=== PATIENT | male | born 1945 | race Caucasian/White ===

== ENCOUNTER 2017-04-29 19:00 | Emergency (ER) | payer MEDICARE ==
--- NOTE | 2017-04-29 20:37 | ED NURSING NOTES ---
Clinical Report - Nurses [facility] [address] [place] [address] 04/29/2017 19:02 Patient: CONNIE LINDSAY TRIAGE Triage time 19:13. Acuity: LEVEL 3. Chief Complaint: NAUSEA, VOMITING and DIARRHEA. --19:16 Sheriff Fairchild R.N. 19:11 04/29/17. BP: 133/71. HR: 91. RR: 22. O2 saturation: 94%. Temp: 98.4 F. Pain level now: 12/07. --19:16 Sheriff Fairchild R.N. Weight: 97 kg stated. Height/Length: 73 inches Per Patient. BMI: 28.2. --19:12 Sheriff Fairchild R.N. Medications Hydrochlorothiazide Oral (Tablet 12.5 mg) 1 tablet, daily. --19:15 Sheriff Fairchild R.N. Allergies No Known Drug Allergy. --19:15 Sheriff Fairchild R.N. History Historian: patient. Onset. (2 hours ago). SURGERY HX: Appendectomy. Tonsillectomy. ( Prostrate). SOCIAL HX: Never smoker. Occasional alcohol use. No drug use. FALL RISK ASSESSMENT: Fall risk assessment completed. No fall risk identified. NUTRITIONAL RISK ASSESSMENT: The nutritional risk assessment revealed no deficiencies. FUNCTIONAL ASSESSMENT: Functional assessment: no impairments noted. LEARNING NEEDS ASSESSMENT: The learning needs assessment revealed no barriers. SKIN INTEGRITY ASSESSMENT: Skin integrity risk assessment completed. No skin integrity risk identified. --19:16 Sheriff Fairchild R.N. PROBLEMS: Hypertension. --19:15 Sheriff Fairchild R.N. Interventions ID band on patient. --19:16 Sheriff Fairchild R.N. PHYSICAL ASSESSMENT To room via wheelchair. GENERAL / NEURO / PSYCH: Alert. Oriented X 4. Appears in no acute distress. HEENT: Mucous membranes are pink. RESPIRATORY: Respirations not labored. CVS: Capillary refill less than 2 seconds. SKIN: Skin is warm and dry. --19:17 Sheriff Fairchild R.N. NURSING PROGRESS NOTES Head of bed elevated. Two patient identifiers checked. Call light placed in reach. Side rails up x 2. Bed placed in lowest position. Brakes of bed on. --19:17 Sheriff Fairchild R.N. 19:32 04/29/2017 Site #1 started via IV in the left antecubital space with an 20g angiocath; one attempt. Blood drawn: rainbow set. Saline lock flushed with 10 mL saline. --19:57 Zheng Nguyen R.N. 19:32 04/29/2017 Started IV Fluids IV NS (Saline); bolus of 1000 mL over 1 hour(s) via site #1 via IV pump. Allergies verified and confirmed 5 rights. IV patency established. IV site checked: no pain, redness, or swelling. IV flushed thoroughly pre- and post-medication administration. --19:57 Zheng Nguyen R.N. 19:58 04/29/2017 Toradol IVP 30 mg given over 1 minute(s) via site #1. Allergies verified and confirmed 5 rights. IV patency established. IV site checked: no pain, redness, or swelling. IV flushed thoroughly pre- and post-medication administration. IVP given by RN. --19:59 Sheriff Fairchild R.N. 19:59 04/29/2017 Zofran (Ondansetron HCl) IVP 4 mg given over 1 minute(s) via site #1. Allergies verified and confirmed 5 rights. IV patency established. IV site checked: no pain, redness, or swelling. IV flushed thoroughly pre- and post-medication administration. IVP given by RN. --19:59 Sheriff Fairchild R.N. 20:55 04/29/2017 Site #1 removed upon discharge. Catheter intact. Bandaid applied. --21:05 Sheriff Fairchild R.N. DISPOSITION / DISCHARGE Condition at departure: stable. No learning barriers present. Discharge instructions provided and reviewed with the patient. Reviewed medication(s) side effects, precautions, dosing and course information. Prescription(s) given to the parent. Patient verbalized understanding. Written instructions provided in [place]. The patient was discharged by the nurse practitioner. He was discharged home and accompanied by spouse. He left the Emergency Department ambulatory and via private vehicle. Spouse driving. --21:04 Sheriff Fairchild R.N. 21:03 04/29/17. BP: 94/48. HR: 84. RR: 18. O2 saturation: 97%. Temp: 98 F. Pain level now: 0/10. --21:04 Sheriff Fairchild R.N. Locked/Released at 04/29/2017 21:05 by Sheriff Fairchild R.N.
--- NOTE | 2017-04-29 20:37 | ED CLINICAL REPORT ---
Clinical Report - Physicians/Mid Levels [facility] [address] [address] 04/29/2017 19:02 Patient: CONNIE LINDSAY Time Seen: 19:25; initial patient contact, initial documentation, patient care assumed. Arrived- By private vehicle. Historian- patient. HISTORY OF PRESENT ILLNESS Chief Complaint: VOMITING and DIARRHEA. This started last night and is still present. It was abrupt in onset. No recent travel. He has had nausea, vomiting. The vomiting has occurred twice and mild, crampy, intermittent abdominal pain. He has had loose stools. This has occurred only once. No black stools, bloody stools, constipation, flank pain or known contact with a sick individual. No change in routine. Has not recently been camping or on antibiotics. Possible bad food exposure at home (shrimp). The illness is described as moderate. (was playing golf earlier when it started back up, sat in hot car afterwards, and got hot playing golf). Similar symptoms previously: None. Recent medical care: Not recently seen/assessed. REVIEW OF SYSTEMS No fever, muscle aches, difficulty with urination, dark urine or dizziness. No chest pain or difficulty breathing. All systems otherwise negative, except as recorded above. PAST HISTORY See nurses notes. PROBLEMS: Hypertension. --19:15 Sheriff Devorah, Makenna. SOCIAL HISTORY Never smoker. Occasional alcohol use. No drug use. No recent travel. Is a local resident. FAMILY HISTORY Negative. ADDITIONAL NOTES The nursing notes have been reviewed with agreement regarding the chief complaint, HPI, ROS, PMH and patient medications and allergies. PHYSICAL EXAM Vital Signs: 04/29/2017 19:11 BP: 133/71. HR: 91. RR: 22. O2 saturation: 94%. Temp: 98.4 F. Pain level now: 2/10. Have been reviewed as normal and appear to be correct. Appearance: Alert. Oriented X3. No acute distress. Eyes: Pupils equal, round and reactive to light. Eyes normal inspection. Neck: Normal inspection. Neck supple. CVS: Normal heart rate and rhythm. Heart sounds normal. Pulses normal. Respiratory: No respiratory distress. Breath sounds normal. Abdomen: Soft and nontender. Bowel sounds normal. No organomegaly. No mass. Back: Normal inspection. Skin: Skin warm and dry. Normal skin color. No rash. Normal skin turgor. Extremities: Extremities exhibit normal ROM. No lower extremity edema. Neuro: Oriented X 3. No motor deficit. No sensory deficit. LABS, X-RAYS, AND EKG Laboratory Tests: CBC w Diff: (FELIPA: 04/29/2017 19:35) ( [facility] 04/29/[place] 20:00) Final results Test Result Flag Units (Reference) WHITE BLOOD COUNT 15.6 H K/uL (4.5-11.5) RED BLOOD COUNT 4.69 M/uL (4.50-5.90) HEMOGLOBIN 14.7 gm/dL (13.5-17.5) HEMATOCRIT 43.5 % (41.0-53.0) MEAN CELL VOLUME 93 fL (80-100) MEAN CORPUSCULAR HGB 31 pg (26-34) MEAN CORPUSCULAR HGB CONC 34 g/dL (31-37) RED CELL DISTRIBUTION WIDTH 13.7 % (11.6-14.8) PLATELET COUNT 238 K/uL (150-400) NEUTROPHIL % 85.5 H % (50-75) LYMPH % 9.3 L % (25-40) MONO % 4.6 % (3-14) EOSINOPHIL % 0.2 % (0-4) BASOPHIL % 0.4 % (0-2) CMP: (FELIPA: 04/29/2017 19:35) ( [facility] 04/29/2017 20:12) Final results Test Result Flag Units (Reference) GLUCOSE 109 mg/dL (70-110) BUN 19 H mg/dL (7-18) CREATININE 1.4 H mg/dL (0.6-1.3) Estimated GFR 53.41 mL/min Estimated GFR- >60 mL/min Note: Persistent reduction over 3 months in eGFR<60 mL/min/1.73 m2 defines CKD. Patients with eGFR values>=60 mL/min/1.73 m2 may also have CKD if evidence ofpersistent proteinuria. Additional information may be foundat www.kidney.org. SODIUM 136 mmol/L (136-145) POTASSIUM 3.8 mmol/L (3.5-5.1) SLIGHT HEMOLYSIS PRESENT CHLORIDE 101 mmol/L (98-107) CARBON DIOXIDE 25 mmol/L (21-32) CALCIUM 8.8 mg/dL (8.5-10.1) TOTAL PROTEIN 7.5 g/dL (6.4-8.2) ALBUMIN 3.8 g/dL (3.3-5.0) BILIRUBIN, TOTAL 0.5 mg/dL (0.0-1.0) ALKALINE PHOSPHATASE 89 U/L (46-116) AST (SGOT) 23 U/L (15-37) ALT (SGPT) 30 U/L (12-78) LIPASE 98 U/L (73-393) AMYLASE 65 U/L (25-115) . PROGRESS AND PROCEDURES Course of Care: tx plan discussed, pt has not voided, agreed to dc without urine sample. Patient counseled in person regarding the patient's stable condition, test results and diagnosis. Differential Diagnosis: I considered gastritis, peptic ulcer disease, ischemia, gastroesophageal reflux disease, gastroparesis, Crohn's disease, ulcerative colitis, small bowel obstruction, colonic obstruction, colon cancer, gastroenteritis, cholecystitis, pancreatitis, viral syndrome, enterocolitis, urinary tract infection, hepatitis and hyperthyroidism as a possible cause of vomiting in this patient. This is a partial list of diagnoses considered. Above considerations are based on history, physical exam, reassessment and laboratory data. Differential diagnosis was discussed with patient. Disposition: Discharged home in good and improved condition (20:37). Condition: good and stable. CLINICAL IMPRESSION Acute noninfectious gastroenteritis. INSTRUCTIONS Take clear liquids only (frequent sips) for the next 24 hours until better. May continue medications with sips only. Advance diet as tolerated. Avoid. Warnings: GENERAL WARNINGS: Return or contact your physician immediately if your condition worsens or changes unexpectedly, if not improving as expected, or if other problems arise. SPECIFICALLY, return if you develop pain in the abdomen or pelvis, fever, the inability to keep fluids down, blood in vomitus, blood in diarrhea, fainting or lightheadedness. Prescription Medications: Zofran 4 mg: Take 1 orally every six hours as needed for nausea/vomiting. Dispense ten (10). No refills. Substitution is permissible. Follow-up: Follow up with your doctor in about two days even if well. Call for an appointment. Summary of care provided to patient. Understanding of the discharge instructions verbalized by patient. (Electronically signed by Chely Ruelas A.R.N.P. 04/29/2017 22:49)
--- NOTE | 2017-04-29 20:37 | ED NURSING NOTES ---
Clinical Report - Nurses [facility] [address] [place] [address] 04/29/2017 19:02 Patient: CONNIE LINDSAY TRIAGE Triage time 19:13. Acuity: LEVEL 3. Chief Complaint: NAUSEA, VOMITING and DIARRHEA. --19:16 Sheriff Fairchild R.N. 19:11 04/29/17. BP: 133/71. HR: 91. RR: 22. O2 saturation: 94%. Temp: 98.4 F. Pain level now: 12/07. --19:16 Sheriff Fairchild R.N. Weight: 97 kg stated. Height/Length: 73 inches Per Patient. BMI: 28.2. --19:12 Sheriff Fairchild R.N. Medications Hydrochlorothiazide Oral (Tablet 12.5 mg) 1 tablet, daily. --19:15 Sheriff Fairchild R.N. Allergies No Known Drug Allergy. --19:15 Sheriff Fairchild R.N. History Historian: patient. Onset. (2 hours ago). SURGERY HX: Appendectomy. Tonsillectomy. ( Prostrate). SOCIAL HX: Never smoker. Occasional alcohol use. No drug use. FALL RISK ASSESSMENT: Fall risk assessment completed. No fall risk identified. NUTRITIONAL RISK ASSESSMENT: The nutritional risk assessment revealed no deficiencies. FUNCTIONAL ASSESSMENT: Functional assessment: no impairments noted. LEARNING NEEDS ASSESSMENT: The learning needs assessment revealed no barriers. SKIN INTEGRITY ASSESSMENT: Skin integrity risk assessment completed. No skin integrity risk identified. --19:16 Sheriff Fairchild R.N. PROBLEMS: Hypertension. --19:15 Sheriff Fairchild R.N. Interventions ID band on patient. --19:16 Sheriff Fairchild R.N. PHYSICAL ASSESSMENT To room via wheelchair. GENERAL / NEURO / PSYCH: Alert. Oriented X 4. Appears in no acute distress. HEENT: Mucous membranes are pink. RESPIRATORY: Respirations not labored. CVS: Capillary refill less than 2 seconds. SKIN: Skin is warm and dry. --19:17 Sheriff Fairchild R.N. NURSING PROGRESS NOTES Head of bed elevated. Two patient identifiers checked. Call light placed in reach. Side rails up x 2. Bed placed in lowest position. Brakes of bed on. --19:17 Sheriff Fairchild R.N. 19:32 04/29/2017 Site #1 started via IV in the left antecubital space with an 20g angiocath; one attempt. Blood drawn: rainbow set. Saline lock flushed with 10 mL saline. --19:57 Zheng Nguyen R.N. 19:32 04/29/2017 Started IV Fluids IV NS (Saline); bolus of 1000 mL over 1 hour(s) via site #1 via IV pump. Allergies verified and confirmed 5 rights. IV patency established. IV site checked: no pain, redness, or swelling. IV flushed thoroughly pre- and post-medication administration. --19:57 Zheng Nguyen R.N. 19:58 04/29/2017 Toradol IVP 30 mg given over 1 minute(s) via site #1. Allergies verified and confirmed 5 rights. IV patency established. IV site checked: no pain, redness, or swelling. IV flushed thoroughly pre- and post-medication administration. IVP given by RN. --19:59 Sheriff Fairchild R.N. 19:59 04/29/2017 Zofran (Ondansetron HCl) IVP 4 mg given over 1 minute(s) via site #1. Allergies verified and confirmed 5 rights. IV patency established. IV site checked: no pain, redness, or swelling. IV flushed thoroughly pre- and post-medication administration. IVP given by RN. --19:59 Sheriff Fairchild R.N. 20:55 04/29/2017 Site #1 removed upon discharge. Catheter intact. Bandaid applied. --21:05 Sheriff Fairchild R.N. DISPOSITION / DISCHARGE Condition at departure: stable. No learning barriers present. Discharge instructions provided and reviewed with the patient. Reviewed medication(s) side effects, precautions, dosing and course information. Prescription(s) given to the parent. Patient verbalized understanding. Written instructions provided in Burmese. The patient was discharged by the nurse practitioner. He was discharged home and accompanied by spouse. He left the Emergency Department ambulatory and via private vehicle. Spouse driving. --21:04 Sheriff Fairchild R.N. 21:03 04/29/17. BP: 94/48. HR: 84. RR: 18. O2 saturation: 97%. Temp: 98 F. Pain level now: 0/10. --21:04 Sheriff Fairchild R.N. Locked/Released at 04/29/2017 21:05 by Sheriff Fairchild R.N.
--- NOTE | 2017-04-29 20:37 | ED ORDER SUMMARY ---
..... Patient: CONNIE LINDSAY OrderSheet [facility] VisitID: [id number] [address] [place] [address] 71y, M Registration Date/Time: 04/29/2017 ORDER SHEET Weight: 97.0 kg (stated) Allergies: No Known Drug Allergy GENERAL ORDERS: CBC w Diff Urgent (19:46 04/29/2017 HBivens A.R.N.P.) (Ack 19:48 RKaruga) (19:56 CHernandez R.N.) CMP Urgent (19:46 04/29/2017 HBivens A.R.N.P.) (Ack 19:48 RKaruga) (19:56 CHernandez R.N.) UA-Culture if indicated Urgent (19:46 04/29/2017 HBivens A.R.N.P.) (Ack 19:48 RKaruga) Amylase Urgent (19:46 04/29/2017 HBivens A.R.N.P.) (Ack 19:48 RKaruga) (19:56 CHernandez R.N.) Lipase Urgent (19:46 04/29/2017 HBivens A.R.N.P.) (Ack 19:48 RKaruga) (19:56 CHernandez R.N.) MEDICATION ORDERS: IV FLUIDS: IV NS : initial bolus 1000 mL (1000 mL/hr), then none - for X1 (NOW) (19:46 04/29/2017 HBivens A.R.N.P.) (19:57 CHernandez R.N.) Toradol IV 30 mg (NOW) (19:46 04/29/2017 HBivens A.R.N.P.) (19:59 SSambou R.N.) Zofran IV 4 mg (NOW) (19:46 04/29/2017 HBivens A.R.N.P.) (19:59 SSambou R.N.) IV Saline Lock (19:46 04/29/2017 HBivens A.R.N.P.) (19:57 CHernandez R.N.) ORDER SHEET NOTES: [Electronically signed by Sheriff Melody Fairchild (21:05 04/29/2017)] [Electronically signed by Chely Ruelas (22:48 04/29/2017)] [Electronically locked/signed by Sheriff Melody Fairchild (21:05 04/29/2017)]
--- NOTE | 2017-04-29 20:37 | ED ORDER SUMMARY ---
..... Patient: CONNIE LINDSAY OrderSheet [facility] VisitID: [id number] [address] [place] [address] 71y, M Registration Date/Time: 04/29/2017 ORDER SHEET Weight: 97.0 kg (stated) Allergies: No Known Drug Allergy GENERAL ORDERS: CBC w Diff Urgent (19:46 04/29/2017 HBivens A.R.N.P.) (Ack 19:48 RKaruga) (19:56 CHernandez R.N.) CMP Urgent (19:46 04/29/2017 HBivens A.R.N.P.) (Ack 19:48 RKaruga) (19:56 CHernandez R.N.) UA-Culture if indicated Urgent (19:46 04/29/2017 HBivens A.R.N.P.) (Ack 19:48 RKaruga) Amylase Urgent (19:46 04/29/2017 HBivens A.R.N.P.) (Ack 19:48 RKaruga) (19:56 CHernandez R.N.) Lipase Urgent (19:46 04/29/2017 HBivens A.R.N.P.) (Ack 19:48 RKaruga) (19:56 CHernandez R.N.) MEDICATION ORDERS: IV FLUIDS: IV NS : initial bolus 1000 mL (1000 mL/hr), then none - for X1 (NOW) (19:46 04/29/2017 HBivens A.R.N.P.) (19:57 CHernandez R.N.) Toradol IV 30 mg (NOW) (19:46 04/29/2017 HBivens A.R.N.P.) (19:59 SSambou R.N.) Zofran IV 4 mg (NOW) (19:46 04/29/2017 HBivens A.R.N.P.) (19:59 SSambou R.N.) IV Saline Lock (19:46 04/29/2017 HBivens A.R.N.P.) (19:57 CHernandez R.N.) ORDER SHEET NOTES: [Electronically signed by Sheriff Melody Fairchild (21:05 04/29/2017)] [Electronically signed by Chely Ruelas (22:48 04/29/2017)] [Electronically locked/signed by Sheriff Melody Fairchild (21:05 04/29/2017)]
--- NOTE | 2017-04-29 22:50 | ED MED RECONCILIATION SUMMARY ---
Patient: CONNIE LINDSAY Medication Reconciliation Report [facility] VisitID: [id number] [address] [place] [address] 71y, M Registration Date/Time: 04/29/2017 Weight: 97.0 kg Height/Length: 73 in. BMI: 28.2 ALLERGIES: No Known Drug Allergy The patient's Home Medications are listed below: THE FOLLOWING MEDICATIONS NEED TO BE RECONCILED: Hydrochlorothiazide Oral (12.5 mg) 1 tablet, daily The source(s) of the original Home Medication information: Not obtained. The following Medications were given to the patient in the Emergency Department: IV NS IV Fluids bolus 1000 mL over 1 hour(s), administered: 04/29/2017 7:32:00 PM Toradol [IVP] IVP 30 mg, administered: 04/29/2017 7:58:00 PM Zofran [IVP] IVP 4 mg, administered: 04/29/2017 7:59:00 PM The following Medications were prescribed to the patient: Zofran 4 mg: Take 1 orally every six hours as needed for nausea/vomiting. Dispense ten (10). No refills. Substitution is permissible. -- Chely Ruelas A.R.N.P.
--- NOTE | 2017-04-29 22:50 | ED MAR SUMMARY ---
..... Medication Administration Record [facility] [address] [place] [address] Patient: CONNIE LINDSAY Visit ID: [id number] 71y, M Weight: 97.0 kg Height/Length: 73 in BMI: 28.2 ALLERGIES: No Known Drug Allergy Start 19:32 04/29/2017 Zheng Nguyen R.N. Medication Administered: IV NS (SALINE), Dose: IV Fluids, Bolus: 1000 mL over 1 hour(s), Site: #1 left AC. Medication Ordered: IV NS : initial bolus 1000 mL (1000 mL/hr), then none - for X1 (NOW). Given 19:58 04/29/2017 Sheriff Fairchild R.N. Medication Administered: TORADOL [IVP], Dose: 30 mg IVP over 1 minute(s), Site: #1 left AC. Medication Ordered: Toradol IV 30 mg (NOW). Given 19:59 04/29/2017 Sheriff Fairchild R.N. Medication Administered: ZOFRAN [IVP] (ONDANSETRON HCL), Dose: 4 mg IVP over 1 minute(s), Site: #1 left AC. Medication Ordered: Zofran IV 4 mg (NOW).
--- NOTE | 2017-04-29 22:50 | ED MED RECONCILIATION SUMMARY ---
Patient: CONNIE LINDSAY Medication Reconciliation Report [facility] VisitID: [id number] [address] [place] [address] 71y, M Registration Date/Time: 04/29/2017 Weight: 97.0 kg Height/Length: 73 in. BMI: 28.2 ALLERGIES: No Known Drug Allergy The patient's Home Medications are listed below: THE FOLLOWING MEDICATIONS NEED TO BE RECONCILED: Hydrochlorothiazide Oral (12.5 mg) 1 tablet, daily The source(s) of the original Home Medication information: Not obtained. The following Medications were given to the patient in the Emergency Department: IV NS IV Fluids bolus 1000 mL over 1 hour(s), administered: 04/29/2017 7:32:00 PM Toradol [IVP] IVP 30 mg, administered: 04/29/2017 7:58:00 PM Zofran [IVP] IVP 4 mg, administered: 04/29/2017 7:59:00 PM The following Medications were prescribed to the patient: Zofran 4 mg: Take 1 orally every six hours as needed for nausea/vomiting. Dispense ten (10). No refills. Substitution is permissible. -- Chely Ruelas A.R.N.P.
--- NOTE | 2017-04-29 22:50 | ED DISCHARGE INSTRUCTIONS ---
Patient: CONNIE LINDSAY General Instructions [facility] VisitID: [id number] [address] [place] [address] 71y, M Registration Date/Time: 04/29/2017 Acute noninfectious gastroenteritis. INSTRUCTIONS Take clear liquids only (frequent sips) for the next 24 hours until better. May continue medications with sips only. Advance diet as tolerated. Avoid. Warnings: GENERAL WARNINGS: Return or contact your physician immediately if your condition worsens or changes unexpectedly, if not improving as expected, or if other problems arise. SPECIFICALLY, return if you develop pain in the abdomen or pelvis, fever, the inability to keep fluids down, blood in vomitus, blood in diarrhea, fainting or lightheadedness. Prescription Medications: Zofran 4 mg: Take 1 orally every six hours as needed for nausea/vomiting. Dispense ten (10). No refills. Substitution is permissible. Follow-up: Follow up with your doctor in about two days even if well. Call for an appointment. Summary of care provided to patient. Understanding of the discharge instructions verbalized by patient. ADDITIONAL INFORMATION Food Poisoning (6Yr-Adult) Food poisoning may occur from1 to 24 hours after eating food that has been contaminated or spoiled. The bacteria or toxins in contaminated or spoiled food cause symptoms very similar to the stomach flu. These include vomiting, diarrhea, stomach cramping, and fever. Food poisoning usually lasts 1 to 2 days. Antibiotics are not effective. Instead, simple home treatment will be helpful. Home Care: If symptoms are severe, rest at home for the next 24 hours. You may use acetaminophen (Tylenol) or ibuprofen (Motrin, Advil) to control fever, unless another medication was prescribed. [NOTE: If you have chronic liver or kidney disease or ever had a stomach ulcer or GI bleeding, talk with your doctor before using these medications. Do not give aspirin to anyone under 18 years of age who is ill with a fever.] Avoid tobacco, caffeine, and alcohol, which may worsen your symptoms. If medicines for diarrhea or vomiting were prescribed, take only as directed. Once vomiting stops, follow these guidelines: During the first 12-24 hours follow the diet below: BEVERAGES: Sport drinks like Gatorade, soft drinks without caffeine, priscilla kofi, mineral water (plain or flavored), decaffeinated or herbal tea, and coffee SOUPS: Clear broth, consomm, and bouillon DESSERTS: Plain gelatin (Jell-O), popsicles, and fruit juice bars During the next 24hours you may add the following to the above: Hot cereal, plain toast, bread, rolls, crackers Plain noodles, rice, mashed potatoes, chicken noodle or rice soup Unsweetened canned fruit (avoid pineapple), bananas Limit fat intake to less than 15 grams per day by avoiding margarine, butter, oils, mayonnaise, sauces, gravies, fried foods, peanut butter, meat, poultry and fish. Limit fiber; avoid raw or cooked vegetables, fresh fruits (except bananas) and bran cereals. Limit caffeine and chocolate. No spices or seasonings except salt. Gradually resume a normal diet as you feel better and your symptoms lessen. Follow Up With Your Doctor As Advised If You Are Not Better In 2 Days. If A Stool (Diarrhea) Sample Was Taken, You May Call In 2 Days (Or As Directed) For The Results. Get Prompt Medical Attention If Any Of The Following Occur: Increasing abdominal pain or constant lower right abdominal pain Continued vomiting (unable to keep liquids down) Frequent diarrhea (more than 5 times a day) Blood in vomit or stool (black or red color) Reduced oral intake Signs of dehydration: increased thirst, dark urine, reduced or no urine output, dry mouth and tongue, tiredness or weakness, dizziness when standing, rapid breathing Fever of 100.4F (38C) oral or higher, not better with fever medication New rash Food Poisoning Or Viral Gastroenteritis (6Yr-Adult) You have a stomach illness that is likely either food poisoning or viral gastroenteritis. Food poisoning occurs from1 to 24 hours after eating contaminated food and lasts up to 1 to 2 days. Viral gastroenteritis is commonly known as the stomach flu. It may last up to a week. Symptoms of both illnesses may include vomiting, diarrhea, fever, and stomach cramping. Antibiotics are not an effective treatment for either problem, but simple home treatment can give relief. Home Care: If symptoms are severe, rest at home for the next 24 hours. You may use acetaminophen (Tylenol) or ibuprofen (Motrin, Advil) to control fever, unless another medication was prescribed. [NOTE: If you have chronic liver or kidney disease or ever had a stomach ulcer or GI bleeding, talk with your doctor before using these medications. Do not give aspirin to anyone under 18 years of age who is ill with a fever.] Avoid tobacco and alcohol consumption. These may worsen your symptoms. If medicines for diarrhea or vomiting were prescribed, take these only as directed. Never take these without a healthcare providers approval. During the first12 to 24hours follow the diet below: BEVERAGES: Sport drinks like Gatorade, soft drinks without caffeine; priscilla kofi, mineral water (plain or flavored), decaffeinated tea and coffee. SOUPS: Clear broth, consomm and bouillon DESSERTS: Plain gelatin (Jell-O), popsicles and fruit juice bars. During the next 24 hours you may add the following to the above: Hot cereal, plain toast, bread, rolls, crackers Plain noodles, rice, mashed potatoes, chicken noodle or rice soup Unsweetened canned fruit (avoid pineapple), bananas Limit fat intake to less than 15 grams per day by avoiding margarine, butter, oils, mayonnaise, sauces, gravies, fried foods, peanut butter, meat, poultry, and fish. Limit fiber; avoid raw or cooked vegetables, fresh fruits (except bananas) and bran cereals. Limit caffeine and chocolate. No spices or seasonings except salt. Gradually resume a normal diet as you feel better and your symptoms lessen. Follow Up with your doctor as advised if you are not better in 2 days. If a stool (diarrhea) sample was taken, you may call in 2 days (or as directed) for the results. Get Prompt Medical Attention if any of the following occur: Increasing abdominal pain or constant lower right abdominal pain Continued vomiting (unable to keep liquids down) Frequent diarrhea (more than 5 times a day) Blood in vomit or stool (black or red color) Signs of dehydration: increased thirst, dark urine, reduced or no urine output, dry mouth and tongue, tireness or weakness, dizziness when standing, rapid breathinng New rash Fever of 100.4F (38C) oral or higher, not better with fever medication Gastroenteritis [Non-Infectious, 6 Yr-Adult] Your symptoms today are coming from the intestinal tract. This may occur as a result of food sensitivity, inflammation of the GI tract, medicines, stress or other causes not related to infection. This may last from 1-3 days. Antibiotics are not effective, but simple home treatment will be helpful. Home Care: If symptoms are severe, rest at home for the next 24 hours. You may use acetaminophen (Tylenol) or ibuprofen (Motrin, Advil) to control fever, unless another medicine was prescribed. [NOTE: If you have chronic liver or kidney disease or ever had a stomach ulcer or GI bleeding, talk with your doctor before using these medicines.] (Aspirin should never be used in anyone under 18 years of age who is ill with a fever. It may cause severe liver damage.) Avoid tobacco and alcohol use, which may make your symptoms worse. If medicines for diarrhea or vomiting were prescribed, take only as directed. Once vomiting stops, then follow these guidelines: During The First 12-24 Hours follow the diet below: gingerale, mineral water (plain or flavored), decaffeinated tea and coffee. During The Next 24 Hours you may add the following to the above: DURING THE NEXT 24 HOURS Gradually resume a normal diet, as you feel better and your symptoms lessen. Follow Up with your doctor as advised if you are not improving over the next 2-3 days. If a stool (diarrhea) sample was taken, you may call in 2 days (or as directed) for the results. Get Prompt Medical Attention if any of the following occur: Increasing abdominal pain or constant lower right abdominal pain Continued vomiting (unable to keep liquids down) Frequent diarrhea (more than 5 times a day) Blood in vomit or stool (black or red color) Reduced oral intake Dark urine, reduced urine output Weakness, dizziness, fainting Drowsiness, confusion, stiff neck or seizure Fever of 100.4F (38C) or higher, or as directed by your healthcare provider New rash Clear Liquid Diet Clear liquids are any liquid that you can see through as well as those that are very easy to digest. This is used while the body is recovering from irritation or infection of the stomach or intestinal tract. It may also be used before special procedures or surgery. This diet is to be used no more than three days. You may include the following items. Adults Adults should drink a total of 23 quarts of liquid per day. It may be easier to drink small frequent servings rather than a few large ones. Liquids can include: Fruit juices.Strained orange juice or lemonade (no pulp), apple, grape and cranberry juice, clear fruit drinks, sports drinks Beverages.Sport drinks, sodas, mineral water (plain or flavored), tea, black coffee, liquid gelatin (add twice the recommended amount of water) Soups.Clear broth, consomm, bouillon Desserts.Plain gelatin, popsicles, fruit juice bars Children Over 2 years old The following liquids are acceptable for children over age 2: Fruit juices.Strained orange juice or lemonade (no pulp), apple, grape and cranberry juice, clear fruit drinks Beverages. Sports drinks, sodas, mineral water (plain or flavored), tea, liquid gelatin (add twice the recommended amount of water) Soups. Clear broth, consomm, bouillon Desserts. Plain gelatin, popsicles, fruit juice bars Children under 2 years old Oral rehydration fluids such are available at drug stores and most grocery stores without a prescription. Gable Diet A bland diet is used for patients with an upset stomach. It consists of foods that are mild and easy to digest. It is better to eat small frequent meals rather than three large meals a day. BEVERAGES OK: Fruit juices, non-caffeinated teas and coffee, non-carbonated velasco AVOID: Carbonated beverage, caffeinated tea and coffee, all alcoholic beverages BREAD OK: Refined white, wheat or rye bread, rudi or soda crackers, [place] toast, plain rolls, bagels AVOID: Whole-grain bread CEREAL OK: Refined cereals: cooked or ready to eat AVOID: Whole grain cereals and granola, or those containing bran, seeds or nuts DESSERTS OK: Peanut butter and all others except those to "avoid" AVOID: Chocolate, cocoa, coconut, popcorn, nuts, seeds, jam, marmalade FRUITS OK: Canned, cooked, frozen or fresh fruits without seeds or tough skin AVOID: Olives, skin and seeds of fruit MEATS OK: All fresh or preserved meat, fish and fowl AVOID: Any that are prepared with those spices to "avoid" CHEESE & EGGS OK: Eggs, cottage cheese, cream cheese, other cheeses AVOID: All cheeses made with those spices to "avoid" POTATOES & PASTA OK: Potato, rice, macaroni, noodles, spaghetti AVOID: None SOUPS OK: All soups without heavy seasoning AVOID: Soups made with those spices to "avoid" VEGETABLES OK: Canned, cooked, fresh or frozen mildly flavored vegetables without seeds, skins or coarse fiber AVOID: Vegetables prepared with those spices to "avoid"; skin and seeds of vegetables and those with coarse fiber SPICES OK: Salt, lemon and sycuan juice, vinegar, all extracts, maryjane, cinnamon, thyme, mace, allspice, paprika AVOID: [place] powder, cloves, pepper, seed spices, garlic, gravy pickles, highly seasoned salad dressings Clear Liquid Diet Clear liquids are any liquid that you can see through as well as those that are very easy to digest. This is used while the body is recovering from irritation or infection of the stomach or intestinal tract. It may also be used before special procedures or surgery. This diet is to be used no more than three days. You may include the following items. Adults Adults should drink a total of 23 quarts of liquid per day. It may be easier to drink small frequent servings rather than a few large ones. Liquids can include: Fruit juices.Strained orange juice or lemonade (no pulp), apple, grape and cranberry juice, clear fruit drinks, sports drinks Beverages.Sport drinks, sodas, mineral water (plain or flavored), tea, black coffee, liquid gelatin (add twice the recommended amount of water) Soups.Clear broth, consomm, bouillon Desserts.Plain gelatin, popsicles, fruit juice bars Children Over 2 years old The following liquids are acceptable for children over age 2: Fruit juices.Strained orange juice or lemonade (no pulp), apple, grape and cranberry juice, clear fruit drinks Beverages. Sports drinks, sodas, mineral water (plain or flavored), tea, liquid gelatin (add twice the recommended amount of water) Soups. Clear broth, consomm, bouillon Desserts. Plain gelatin, popsicles, fruit juice bars Children under 2 years old Oral rehydration fluids such are available at drug stores and most grocery stores without a prescription. Ondansetron Oral disintegrating tablet What is this medicine? ONDANSETRON (on ABY se lynda) is used to treat nausea and vomiting caused by chemotherapy. It is also used to prevent or treat nausea and vomiting after surgery. How should I use this medicine? These tablets are made to dissolve in the mouth. Do not try to push the tablet through the foil backing. With dry hands, peel away the foil backing and gently remove the tablet. Place the tablet in the mouth and allow it to dissolve, then swallow. While you may take these tablets with water, it is not necessary to do so. Talk to your art studio teacher regarding the use of this medicine in children. Special care may be needed. What side effects may I notice from receiving this medicine? Side effects that you should report to your doctor or health career and guidance counselor as soon as possible: allergic reactions like skin rash, itching or hives, swelling of the face, lips, or tongue breathing problems dizziness fast or irregular heartbeat feeling faint or lightheaded, falls fever and chills swelling of the hands and feet tightness in the chest Side effects that usually do not require medical attention (report to your doctor or health career and guidance counselor if they continue or are bothersome): constipation or diarrhea headache What may interact with this medicine? Do not take this medicine with any of the following medications: -apomorphine -cisapride -dofetilide -dronedarone -pimozide -thioridazine -ziprasidone This medicine may also interact with the following medications: -carbamazepine -phenytoin -rifampicin -tramadol -other medicines that prolong the QT interval (cause an abnormal heart rhythm) What if I miss a dose? If you miss a dose, take it as soon as you can. If it is almost time for your next dose, take only that dose. Do not take double or extra doses. Where should I keep my medicine? Keep out of the reach of children. Store between 2 and 30 degrees C (36 and 86 degrees F). Throw away any unused medicine after the expiration date. What should I tell my health care provider before I take this medicine? They need to know if you have any of these conditions: heart disease history of irregular heartbeat liver disease low levels of magnesium or potassium in the blood an unusual or allergic reaction to ondansetron, granisetron, other medicines, foods, dyes, or preservatives or trying to get breast-feeding What should I watch for while using this medicine? Check with your doctor or health career and guidance counselor as soon as you can if you have any sign of an allergic reaction. You have been given the following additional information: Food Poisoning (6Yr-Adult) Food Poisoning Or Gastroenteritis (6Y-Adult) Gastroenteritis, Non-Infectious (Child) (Adult) Diet, Clear Liquid Diet, Gable (Adult) Diet, Clear Liquid Ondansetron Oral disintegrating tablet (Electronically signed by Chely Ruelas A.R.N.PCristiane 04/29/2017 22:49)
--- NOTE | 2017-04-29 22:50 | ED MAR SUMMARY ---
..... Medication Administration Record [facility] [address] [place] [address] Patient: CONNIE LINDSAY Visit ID: [id number] 71y, M Weight: 97.0 kg Height/Length: 73 in BMI: 28.2 ALLERGIES: No Known Drug Allergy Start 19:32 04/29/2017 Zheng Nguyen R.N. Medication Administered: IV NS (SALINE), Dose: IV Fluids, Bolus: 1000 mL over 1 hour(s), Site: #1 left AC. Medication Ordered: IV NS : initial bolus 1000 mL (1000 mL/hr), then none - for X1 (NOW). Given 19:58 04/29/2017 Sheriff Fairchild R.N. Medication Administered: TORADOL [IVP], Dose: 30 mg IVP over 1 minute(s), Site: #1 left AC. Medication Ordered: Toradol IV 30 mg (NOW). Given 19:59 04/29/2017 Sheriff Fairchild R.N. Medication Administered: ZOFRAN [IVP] (ONDANSETRON HCL), Dose: 4 mg IVP over 1 minute(s), Site: #1 left AC. Medication Ordered: Zofran IV 4 mg (NOW).
== END 2017-04-29 20:45 | disposition home or self-care (01) ==
LOC: ED SRH 19:00
DX: K52.9 Noninfective gastroenteritis and colitis, unspecified (principal); I10 Essential (primary) hypertension; Z79.899 Other long term (current) drug therapy
CPT/HCPCS: 90100; 92235; 92530; 95059